=== PATIENT | female | born 1985 | race Caucasian/White ===

== ENCOUNTER 2019-06-25 23:03 | Emergency (ER) | payer OTHER ==
[~2019-06-25] VITALS: Ht 157.5 cm; Wt 80.7 kg
[2019-06-25 23:33] LABS: URINE BILIRUBIN NEGATIVE (Negative); URINE BLOOD 2+ (Negative); URINE CLARITY CLEAR; URINE COLOR STRAW; URINE GLUCOSE-RANDOM NEGATIVE (Negative); URINE KETONES NEGATIVE (Negative); URINE LEUKOCYTES-REFLEX NEGATIVE (Negative); URINE NITRITE-REFLEX NEGATIVE (Negative); URINE PROTEIN NEGATIVE (Negative); URINE SPECIFIC GRAVITY <= 1.005 (1.005-1.030); URINE UROBILINOGEN 0.2 E.U./dl (0.2-1.0)
[2019-06-25 23:40] LABS: CASTS None Seen /LPF (None Seen); CRYSTALS None Seen /LPF (None Seen); MUCUS 0-3 Light strn/LPF (None Seen); SQUAMOUS 4-10 Moderate /LPF (0-3); URINE WBC-REFLEX 0-5 Rare /HPF (0-5)
[2019-06-26] MEDS ORDERED: FLEXERIL PO (00:28)
[2019-06-26] MEDS ORDERED: IBU600 MG PO (00:28)
[2019-06-26] MEDS ORDERED: TORADOL 10 MG T10 MG PO (01:07)
[2019-06-26] MEDS ORDERED: HYDROCODON-ACE1 EAC7 PO (01:07)
[2019-06-26] MEDS ORDERED: CYCLOBENZAPRINE5 MG PO (01:07)
[2019-06-26 01:28] VITALS: BP 117/57
== END 2019-06-26 01:28 | disposition home or self-care (01) ==
LOC: M.ERS 23:03
PROVIDERS: Physician Assistant
DX: M54.5 Low back pain (principal); R10.9 Unspecified abdominal pain; R31.9 Hematuria, unspecified